=== PATIENT | female | born 1965 | race Caucasian/White ===

== ENCOUNTER 2016-08-31 22:34 | Inpatient (IN) | payer OTHER ==
[~2016-08-31] VITALS: Ht 172.7 cm; Wt 91.4 kg
[~2016-08-31 22:34] MED LIST: ATIVAN0.5 MG PO; BENICAR HCT 201 EACH PO; CELEXA10 MG PO; CLARITIN10 M3 PO; COLACE100 MG PO; COMPAZINE10 MG PO; DEXAMETHASONE2 MG PO; IMODIUM A-D2 M2 PO; MIRALAX17 GM PO; MOTRIN IB200 MG PO; PROTONIX40 MG PO; TYLENOL ARTHRI650 MG PO; ZANTAC150 MG PO
[2016-08-31 23:54] LABS: CHLORIDE 105 mEq/L (99-109); POTASSIUM 3.8 mEq/L (3.7-5.4); SODIUM 137 mEq/L (136-147)
[2016-08-31 23:56] LABS: GLUCOSE 91 mg/dL (70-99)
[2016-08-31 23:57] LABS: ANION GAP 9 MEQ/L (2-14)
[2016-08-31 23:58] LABS: HEMATOCRIT 29.5 % (36.0-46.0); MCH 34.9 PG (29.0-34.0); MCHC 34.6 G/DL (30.0-36.0); MEAN PLAT.VOLUME 9.9 uM^3 (9.5-12.4); PLATELET COUNT 379 K/uL (156-360); RBC DIS.WIDTH-CV 18.6 % (11.8-14.6); RBC DIS.WIDTH-SD 67.4 % (39-53); RED BLOOD COUNT 2.92 M/uL (3.80-5.20)
[2016-08-31 23:58] LABS: TOTAL BILIRUBIN 0.8 mg/dL (0.0-1.0)
[2016-08-31 23:59] LABS: ALKALINE PHOSPHATASE 107 IU/L (3-129)
[2016-09-01] LABS: GFR ESTIMATE (CALCULATED) > 59 mL/min/
[2016-09-01] LABS: WHITE BLOOD COUNT 66.1 K/uL (4.1-10.2)
[2016-09-01 00:01] LABS: UREA NITROGEN (BUN) 19 mg/dL (9-23)
[2016-09-01 00:08] LABS: ADD MIUA? YES; BILIRUBIN NEGATIVE; BLOOD MODERATE; COLOR YELLOW ((YELLOW)); GLUCOSE (STRIP) NEGATIVE; KETONES NEGATIVE; LEUKOCYTES LARGE; NITRITE NEGATIVE; PROTEIN (STRIP) NEGATIVE; SPECIFIC GRAVITY 1.012 (1.000-1.030); UROBILINOGEN 0.2 MG/DL (0.2-1.0)
[2016-09-01 00:12] LABS: BACTERIA RARE /HPF; EPITHELIAL CELLS RARE /HPF; MUCUS TRACE /LPF; UCUL ADDED? NO
[2016-09-01 00:47] LABS: INFLUENZA A VIRAL ANTIGEN NEGATIVE; INFLUENZA B VIRAL ANTIGEN NEGATIVE
[2016-09-01] MEDS ORDERED: SYMBICORT60 INHALA1 IH (01:12)
[2016-09-01] MEDS ORDERED: DEXAMETHASONE4 MG PO (01:12)
[2016-09-01] MEDS ORDERED: HYCODAN SYRUP480 ML PO (01:13)
[2016-09-01 02:01] LABS: ABS NEUTROPHIL COUNT 53.5; ANISOCYTOSIS 2+; EOSINOPHIL ABS CT 0.7; INSTRUMENT ABS NEUTROPHIL CT 54.9 K/uL; MACROCYTES 2+; OVALOCYTES 1+; PLAT.SUFFICIENCY ADEQUATE
[2016-09-01 06:52] VITALS: BP 99/54
[2016-09-01 09:29] LABS: HEMATOCRIT 27.1 % (36.0-46.0); MCH 34.8 PG (29.0-34.0); MCHC 33.9 G/DL (30.0-36.0); MCV 102.7 FL (83-99); MEAN PLAT.VOLUME 10.2 uM^3 (9.5-12.4); PLATELET COUNT 335 K/uL (156-360); RBC DIS.WIDTH-CV 19.2 % (11.8-14.6); RBC DIS.WIDTH-SD 70.8 % (39-53); RED BLOOD COUNT 2.64 M/uL (3.80-5.20)
[2016-09-01 09:33] LABS: CHLORIDE 108 mEq/L (99-109); POTASSIUM 3.9 mEq/L (3.7-5.4); SODIUM 139 mEq/L (136-147)
[2016-09-01 09:34] LABS: GLUCOSE 90 mg/dL (70-99)
[2016-09-01 09:36] LABS: ANION GAP 8 MEQ/L (2-14)
[2016-09-01 09:38] LABS: GFR ESTIMATE (CALCULATED) > 59 mL/min/
[2016-09-01 09:39] LABS: UREA NITROGEN (BUN) 14 mg/dL (9-23)
[2016-09-01 09:46] LABS: WHITE BLOOD COUNT 63.8 K/uL (4.1-10.2)
[2016-09-01 11:16] LABS: ABS NEUTROPHIL COUNT 59.3; EOSINOPHIL ABS CT 0; INSTRUMENT ABS NEUTROPHIL CT 49.6 K/uL; LYMPHOCYTES 1.8 % (15.0-45.0); METAMYELOCYTES 2.6 %; MYELOCYTES 1.8 %; SEG.NEUTROPHILS 71.9 % (46.0-76.0)
[2016-09-01 11:23] VITALS: BP 101/57
[2016-09-01 15:43] VITALS: BP 96/54
[2016-09-01 19:18] VITALS: BP 105/70
[2016-09-01 23:02] VITALS: BP 97/89
[2016-09-02 03:51] VITALS: BP 99/55
[2016-09-02 09:12] VITALS: BP 110/63
[2016-09-02 10:50] LABS: HEMATOCRIT 26.7 % (36.0-46.0); MCH 35.8 PG (29.0-34.0); MCHC 34.1 G/DL (30.0-36.0); MCV 105.1 FL (83-99); MEAN PLAT.VOLUME 10.4 uM^3 (9.5-12.4); PLATELET COUNT 304 K/uL (156-360); RBC DIS.WIDTH-CV 19.5 % (11.8-14.6); RED BLOOD COUNT 2.54 M/uL (3.80-5.20)
[2016-09-02 10:55] LABS: WHITE BLOOD COUNT 40.8 K/uL (4.1-10.2)
[2016-09-02 10:57] LABS: ANION GAP 7 MEQ/L (2-14); CHLORIDE 108 MEQ/L (99-109); GFR ESTIMATE (CALCULATED) > 59 mL/min/; GLUCOSE 91 mg/dL (70-99); POTASSIUM 3.8 MEQ/L (3.7-5.4); SAMPLE HEMOLYSIS CHECK 0; SAMPLE ICTERIC CHECK 0; SAMPLE LIPEMIA CHECK 0; SODIUM 140 MEQ/L (136-147); UREA NITROGEN (BUN) 9 mg/dL (9-23)
[2016-09-02] MEDS ORDERED: AUGMENTIN875 MG PO (11:11)
[2016-09-02 11:41] LABS: ABS NEUTROPHIL COUNT 35.8; BAND NEUTROPHILS 9.6 % (0-8.0); BASOPHILS 0.9 %; EOSINOPHIL ABS CT 1.1; EOSINOPHILS 2.6 % (0-5.0); INSTRUMENT ABS NEUTROPHIL CT 35.2 K/uL; LYMPHOCYTES 1.7 % (15.0-45.0); METAMYELOCYTES 5.2 %; MYELOCYTES 0.9 %; SEG.NEUTROPHILS 78.2 % (46.0-76.0)
[2016-09-02 12:37] VITALS: BP 101/54
== END 2016-09-02 12:55 | disposition home or self-care (01) | DRG 872 ==
LOC: EME 22:34 → EDOF 09-01 01:26 → 5EAST 09-01 02:40
PROVIDERS: Emergency Medicine; Hospitalist; Internal Medicine
DX: A41.9 Sepsis, unspecified organism (principal); J32.9 Chronic sinusitis, unspecified; N39.0 Urinary tract infection, site not specified; I10 Essential (primary) hypertension; F41.9 Anxiety disorder, unspecified; K21.9 Gastro-esophageal reflux disease without esophagitis; C50.919 Malignant neoplasm of unspecified site of unspecified female breast; I95.9 Hypotension, unspecified
CPT/HCPCS: 71020; 80048; 80053; 81003; 83605; 85025; 87040; 87070; 87077; 87502; 94640; 94640 76; 96375; 96377 XU; 96413; 96417; 99281; 99285; J1100; J1644; J2469; J2505; J2543; J7030; J7050; J9045; J9171; J9306; J9355

== ENCOUNTER → 2016-11-29 | Outpatient (CLI) | payer OTHER ==
[~2016-11-29] MED LIST changes: +ADVIL,NUPRIN,M200 MG PO; -ATIVAN0.5 MG PO; +ATIVAN1 MG PO; +AUGMENTIN875 MG PO; +CLARITIN-D 21 TABLET PO; -CLARITIN10 M3 PO; +DEXAMETHASONE4 MG PO; +ENDOCET 5-3251 EACH PO; +HYCODAN SYRUP480 ML PO; +SYMBICORT60 INHALA1 IH; +VENTOLIN HFA18 GM IH
== END | disposition home or self-care (01) ==
LOC: NUC 13:55
DX: C50.812 Malignant neoplasm of overlapping sites of left female breast (principal)
CPT/HCPCS: 78195; A9541

== ENCOUNTER 2016-11-30 06:56 | Day surgery (SDC) | payer OTHER ==
[~2016-11-30] VITALS: Ht 172.7 cm; Wt 88.5 kg
[~2016-11-30 06:56] MED LIST changes: -ENDOCET 5-3251 EACH PO
[2016-11-30 07:41] VITALS: BP 102/62
[2016-11-30 14:09] VITALS: BP 115/71
[2016-11-30 19:45] VITALS: BP 109/67
[2016-11-30 23:41] VITALS: BP 116/76
[2016-12-01 04:16] VITALS: BP 101/61
[2016-12-01 07:47] VITALS: BP 112/61
[2016-12-01 08:34] LABS: HEMATOCRIT 32.1 % (36.0-46.0); MCH 36.8 PG (29.0-34.0); MCHC 33.3 G/DL (30.0-36.0); MCV 110.3 FL (83-99); MEAN PLAT.VOLUME 10.6 uM^3 (9.5-12.4); PLATELET COUNT 272 K/uL (156-360); RBC DIS.WIDTH-CV 13.1 % (11.8-14.6); RBC DIS.WIDTH-SD 53.9 % (39-53); RED BLOOD COUNT 2.91 M/uL (3.80-5.20); WHITE BLOOD COUNT 7.5 K/uL (4.1-10.2)
[2016-12-01 11:30] VITALS: BP 119/79
[2016-12-01] MEDS ORDERED: ENDOCET 5-3251 EACH PO (12:01)
== END 2016-12-01 14:01 | disposition home or self-care (01) ==
LOC: SDC 06:56 → 2SOUTH 12:55 → 2EAST 12:55 → ENRESERV 13:15 → 2EAST 14:02
PROVIDERS: Surgery
DX: C50.812 Malignant neoplasm of overlapping sites of left female breast (principal); I10 Essential (primary) hypertension; F41.8 Other specified anxiety disorders; K21.9 Gastro-esophageal reflux disease without esophagitis; F17.210 Nicotine dependence, cigarettes, uncomplicated; Z80.3 Family history of malignant neoplasm of breast; Z80.6 Family history of leukemia; Z80.0 Family history of malignant neoplasm of digestive organs
CPT/HCPCS: 78999; 84702; 85027; 88305; 88309; 93005; 99202; G0378; J0690; J1100; J1170; J2250; J2405; J3010; S0020

== ENCOUNTER → 2017-07-21 | Outpatient (CLI) | payer OTHER ==
[~2017-07-21] MED LIST changes: +ENDOCET 5-3251 EACH PO
== END | disposition home or self-care (01) ==
LOC: AMB 09:25
PROC: 0JPT3WZ Removal of Totally Implantable Vascular Access Device from Trunk Subcutaneous Tissue and Fascia, Percutaneous Approach (ICD-10-PCS; principal; 2017-07-21)
DX: Z45.2 Encounter for adjustment and management of vascular access device (principal); I87.8 Other specified disorders of veins